=== PATIENT | male | born 1945 | race Caucasian/White ===

== ENCOUNTER 2018-05-01 09:34 | Emergency (ER) | payer MEDICARE, OTHER ==
[2018-05-01 09:49] VITALS: BP 124/69
--- NOTE | 2018-05-01 10:27 | RAD ---
HISTORY: TRAUMA 2 WKS AGO -PERSISTENT PAIN/SWELLING MTP COMPARISONS: None VIEWS: 3 , Frontal, lateral, and oblique views of the third digit of the right foot FINDINGS: BONE DENSITY: Normal. BONES: There is a slightly displaced transverse fracture of the base of the third digit. JOINTS: There is no arthropathy. ALIGNMENT: There is no dislocation. SOFT TISSUES: Unremarkable. OTHER FINDINGS: None. IMPRESSION: SLIGHTLY DISPLACED FRACTURE OF THE BASE OF THE PROXIMAL PHALANX OF THE THIRD DIGIT
--- NOTE | 2018-05-01 10:30 | UC ---
Lower Extremity/Ankle HPI - HPI Summary HPI Summary: DROPPED A HEAVY PIECE OF [place] ON HIS RIGHT FOOT 2 WEEKS AGO. HAS PERSISTENT PAIN, REDNESS AND SWELLING TO RIGHT THIRD TOE. - History of Current Complaint Chief Complaint: UCLowerExtremity Stated Complaint: TOE INJURY Time Seen by Provider: 05/01/18 09:52 Hx Obtained From: Patient Onset/Duration: Sudden Onset, Lasting Weeks, Still Present Severity Initially: Moderate Severity Currently: Moderate Pain Intensity: 4 Pain Scale Used: 0-10 Numeric Aggravating Factor(s): Other - TOUCH Alleviating Factor(s): Nothing Able to Bear Weight: Yes - Allergies/Home Medications Allergies/Adverse Reactions: Allergies Allergy/AdvReac Type Severity Reaction Status Date / Time Enviromental Allergy Unknown Unknown Uncoded 05/01/18 09:49 Reaction Details PMH/Surg Hx/FS Hx/Imm Hx Other Cancer History: BASAL CELL CARCINOMA - Surgical History Surgical History: Yes Surgery Procedure, Year, and Place: Hernia Surgery - Family History Known Family History: Negative: Hypertension - Social History Alcohol Use: None Substance Use Type: None Smoking Status (MU): Never Smoked Tobacco Review of Systems Constitutional: Negative Skin: Bruising, Other - ERYTHEMA Respiratory: Negative Cardiovascular: Negative Gastrointestinal: Negative Musculoskeletal: Arthralgia, Decreased ROM, Edema All Other Systems Reviewed And Are Negative: Yes Physical Exam Triage Information Reviewed: Yes Appearance: Well-Appearing, No Pain Distress, Well-Nourished Vital Signs: Initial Vital Signs Temp 98 F 05/01/18 09:46 Pulse 53 05/01/18 09:46 Resp 16 05/01/18 09:46 BP 124/69 05/01/18 09:46 Pulse Ox 99 05/01/18 09:46 Vital Signs Reviewed: Yes Eyes: Positive: Conjunctiva Clear ENT: Positive: Hearing grossly normal Neck: Positive: Supple Respiratory: Positive: No respiratory distress, No accessory muscle use Cardiovascular: Positive: Pulses Normal Abdomen Description: Positive: Soft Musculoskeletal: Positive: Edema @ - RIGHT 3RD TOE, Other: - ERYTHEMA AND SWELLING RIGHT 3RD TOE. TTP MTP Neurological: Positive: Alert Psychological: Positive: Age Appropriate Behavior Skin: Negative: rashes Diagnostics - Radiology RIGHT 3RD TOE XRAY Xray Interpretation: Positive (See Comments) - SLIGHTLY DISPLACED FRACTURE OF THE BASE OF THE PROXIMAL PHALANX OF THE THIRD DIGIT Radiology Interpretation Completed By: Radiologist Lower Extremity Course/Dx - Differential Dx/Diagnosis Provider Diagnoses: SLIGHTLY DISPLACED FRACTURE OF THE BASE OF THE PROXIMAL PHALANX OF THE RIGHT THIRD TOE Discharge - Sign-Out/Discharge Documenting (check all that apply): Patient Departure All imaging exams completed and their final reports reviewed: Yes - Discharge Plan Condition: Stable Disposition: HOME Patient Education Materials: Toe Fracture (ED) Referrals: Cristina Reyes MD [Primary Care Provider] - If Needed Augustina Augustin MD [Medical Doctor] - 1 Week Additional Instructions: SLIGHTLY DISPLACED FRACTURE OF THE BASE OF THE PROXIMAL PHALANX OF THE THIRD TOE SEEN ON XRAY TODAY. POST-OP SHOE FOR COMFORT. OTC MEDS NEEDED FOR PAIN. FOLLOW-UP WITH ORTHO. REST, ELEVATE. - Billing Disposition and Condition Condition: STABLE Disposition: Home
== END 2018-05-01 10:42 | disposition home or self-care (01) ==
LOC: UCEAST 09:34
DX: S92.511A Displaced fracture of proximal phalanx of right lesser toe(s), initial encounter for closed fracture (principal); W20.8XXA Other cause of strike by thrown, projected or falling object, initial encounter; Y93.9 Activity, unspecified; Y92.9 Unspecified place or not applicable; Z85.828 Personal history of other malignant neoplasm of skin
CPT/HCPCS: 99212; G0463

== ENCOUNTER 2021-01-22 05:42 | Observation (INO) ==
[~2021-01-22 05:42] MED LIST: HYDROcodone/ACETAMIN 5/325 mg TAB PO PRN; Metoclopramide 5 MG/ML VIAL (10 mg) IV PRN; Naloxone 0.4 mg VIAL 0.4 mg/ml 1 ml VIAL IV PRN; Ondansetron 4 mg VIAL 2 MG/ML 2 ml VIAL IV PRN; fentaNYL 100 mcg/2 ml 50 MCG/ML VIAL IV PRN
[2021-01-22] MEDS ORDERED: Lactated Ringers 1000 ml BAG 1,000 ML IV SCH ×2 (06:00)
[2021-01-22] MEDS ORDERED: DiMENhydriNATE IV 50 mg/ml 1 ml VIAL IV PUSH ONE (06:00)
[2021-01-22] MEDS ORDERED: Buffered Lidocaine 1% SYRIN 1 ml INTRADERM ONE ×3 (06:00→06:50)
[2021-01-22] MEDS ORDERED: Dexamethasone IV 4 MG/ML VIAL 1 ml VIAL ONE (06:46)
[2021-01-22] MEDS ORDERED: Propofol 10 MG/ML 20 ML BTL ONE (06:46)
[2021-01-22] MEDS ORDERED: Ondansetron 4 mg VIAL 2 MG/ML 2 ml VIAL ONE (06:46)
[2021-01-22] MEDS ORDERED: fentaNYL 100 mcg/2 ml 50 MCG/ML VIAL ONE (06:46)
[2021-01-22] MEDS ORDERED: Lidocaine 2% PF 5 ML VIAL ONE (06:46)
[2021-01-22] MEDS ORDERED: Midazolam 2 mg/2 ml VIAL 1 mg/ml 2 ml VIAL (2 mg) ONE (06:47)
[2021-01-22] MEDS ORDERED: cefTRIAXone 2 GM ADDV.VIAL ONE (06:50)
[2021-01-22] MEDS ORDERED: DiMENhydriNATE IV 50 mg/ml 1 ml VIAL ONE (06:50)
[2021-01-22] MEDS ORDERED: Glycopyrrolate IV 0.2 MG/ML 1 ML VIAL ONE ×3 (07:54→08:04)
[2021-01-22] MEDS ORDERED: NS 0.9% 1,000 ML IV SCH (09:10)
[2021-01-23] MEDS ORDERED: Lidocaine 2% JELLY 6 ML TOPICAL PRN (03:52)
[2021-01-23] MEDS ORDERED: oxyCODONE/Acetamin 5/325 mg TAB PO PRN (03:54)
[2021-01-23 08:39] VITALS: BP 118/68
== END 2021-01-23 10:23 | disposition home or self-care (01) ==
LOC: OR 05:42 → SSU 10:22 → INTOOBSV 10:22
PROVIDERS: ADMIT Urology; ATTEND Urology